=== PATIENT | male | born 1990 | race Caucasian/White ===

== ENCOUNTER 2025-06-07 10:40 | Outpatient (CLI) | payer OTHER, SELFPAY ==
--- NOTE | 2025-06-07 11:00 | CY_PTH ---
PATIENT: Pepe Khoury LOC: [facility]#:[id number] AGE/SX: 35/M ROOM: RE06/07/[address]: Amado Muse MD : 1990 BED: DIS: 06/07/2025 SPEC #: [id number] RECD: 06/07/25 14:40 STATUS: LAURA REQ #: [id number] NANCY: 06/07/25 11:[address]: Amado Muse DEPT: [facility] Cytology RECD BY: Merissa Oliveros ENTERED: 06/07/25 14:42 SP TYPE: Cytology OT DR: Sierra Ayala, Tissues: A - Flow Procedures: Flow Cytometry
[2025-06-07 11:04] LABS: Hematocrit 48.7 % (42.0-52.0); Hemoglobin 16.4 g/dL (14.0-18.0); Immature Granulocyte Percent A 0.2 % (0-0.5); Lymphocytes Absolute Auto 6.06 K/mm3 (0.9-3.2); Mean Corpuscular HGB Conc 33.7 g/dl (32-36); Mean Corpuscular Hemoglobin 30.8 pg (26-34); Mean Corpuscular Volume 91.4 fl (80-100); Nucleated Red Blood Cells Absolute Auto 0.000 K/mm3 (0.0-0.012); Nucleated Red Blood Cells Perc 0.0 % (0.0-0.2); Platelet Count Result 194 k/mm3 (150-375); Red Blood Count 5.33 M/mm3 (4.6-6.20); White Blood Count 12.4 K/mm3 (4.5-10.0)
[2025-06-07 11:06] LABS: Schistocytes None Seen
[2025-06-07 12:21] LABS: Alanine Aminotransferase 17 U/L (6-50); Albumin Level 5.0 g/dL (3.5-5.1); Alkaline Phosphatase 65 U/L (38-126); Anion Gap 8 mmol/L (4-12); Aspartate Amino Transferase 22 U/L (17-59); Bilirubin,Total 0.5 mg/dL (0.2-1.3); Blood Urea Nitrogen 21 mg/dL (9-20); Calcium 9.4 mg/dL (8.4-10.2); Carbon Dioxide 31 mmol/L (22-30); Chloride 97 mmol/L (98-107); Estimated Glomerular Filt Rate > 60; Glucose 106 mg/dL (65-110); Potassium 4.3 mmol/L (3.4-5.0); Sodium 136 mmol/L (137-145); Total Protein 7.8 g/dL (6.3-8.2)
== END 2025-06-07 10:41 | disposition home or self-care (01) ==
LOC: ANHLAB 10:44
PROVIDERS: PCP Internal Medicine; Visit Provider Internal Medicine Hematology & Oncology
DX: D72.820 Lymphocytosis (symptomatic) (principal)
CPT/HCPCS: 36415; 80053; 82232; 83615; 85025; 85652; 88184